=== PATIENT | female | born 1990 | race Caucasian/White ===

== ENCOUNTER 2018-03-13 22:41 | Emergency (ER) | payer OTHER ==
[2018-03-13] MEDS ORDERED: NS 1,000 ML IV ONE (22:57)
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
[2018-03-14 06:21] VITALS: BP 107/63
== END 2018-03-14 06:25 | disposition home or self-care (01) ==
LOC: EDSEX 22:41
DX: F19.10 Other psychoactive substance abuse, uncomplicated (principal); E86.9 Volume depletion, unspecified
CPT/HCPCS: G0480